=== PATIENT | male | born 1995 | race Asian ===

== ENCOUNTER 2023-12-25 08:04 | Emergency (ER) | payer SELFPAY ==
[2023-12-25 08:04] VITALS: BP 162/111; PULSE 96; RESP 16; TEMP 36.1; O2SAT 98
--- NOTE | 2023-12-25 08:23 | ED.EAR ---
HPI - Ear Problem General Chief complaint: Ear Stated complaint: right ear pain/ discharge Time Seen by Provider: 12/25/23 08:09 History of Present Illness HPI Narrative: Patient is a 28 year old male with history of psoriasis, not on treatment, here with right ear pain and swelling. He notes that at the beginning of December he began having a sensation of a plugged ear. He suspected he may have swimmer's ear and bought some decongesting drops off of [employer]. He has been using these however has felt persistent worsening. Pain and swelling seems to have worsened over the last 3 days. He notes some fullness anterior to the ear, as well as pain and swelling to the ear itself. He notes associated muffled hearing in this ear. He denies fever, chills. He did experience a traumatic TM rupture in this same here more than 10 years ago. His PCP is up in [place], he relocated to this area for work about 2 years ago and only goes back to [place] during holidays. Related Data Allergies Allergy/AdvReac Type Severity Reaction Status Date / Time bee venom protein (honey bee) Allergy Anaphylaxis Verified 12/25/23 08:32 [bees] Review of Systems Review of Systems: All systems reviewed & are unremarkable except as noted in HPI and below Exam Narrative: GENERAL: Well-appearing, well-nourished, and in no acute distress. HEAD: Normocephalic, atraumatic. EYES: PERRLA and EOMI. ENT: Nares clear. Mucous membranes moist. Left TM and external canal normal. Right external canal edematous with some yellow crusted discharge present. Tender exam, difficulty visualizing R TM due to canal edema. He has some tenderness over tragus. R preauricular lymphadenopathy. NECK: Supple. CHEST: Clear to auscultation. No respiratory distress. HEART: Regular rate and rhythm. Normal peripheral pulses. ABDOMEN: Soft, nontender, nondistended. EXTREMITIES: Normal range of motion. No edema. SKIN: Warm, dry, no rash. NEURO: No focal deficits. Alert and oriented x3. PSYCH: Normal mood and affect. Course Course Emergency Course: Chart review performed. Patient here with ear pain. Triage vitals normal. It appears he has not been here before. Patient seen evaluated, nontoxic appearing. He appears to have otitis externa with some preauricular lymphadenopathy present. Unable to visualize the right TM due to canal wall edema. Will place ear wick and prophylactically treat for both otitis externa and interna because TM is nonvisualized. Ear wick placed by myself without difficulty. Patient tolerated procedure well. The results of pertinent diagnostic studies and exam findings were discussed. The patient?s provisional diagnosis and plan of care were discussed with the patient and present family. The patient and/or present family expressed understanding of the diagnosis and plan. The nurse was instructed to provide written instructions and appropriate follow-up information. The patient understands their need and responsibility to obtain additional follow-up as instructed. The risks of medications administered and prescribed were discussed with the patient and family present. Discharge Plan Discharge Clinical Impression: Otitis externa Qualifiers: Otitis externa type: diffuse Chronicity: acute Laterality: right Qualified Code(s): H60.311 - Diffuse otitis externa, right ear Patient Disposition: Home, Self-Care Condition: Stable Instructions: Antibiotic Form, Swimmer's Ear (ED) Additional Instructions: You appear to have otitis externa which is an outer ear infection commonly called swimmer's ear. Take ibuprofen and tylenol as needed for pain. You may alternate these every 3 hours. Keep ear canal as dry as you can, this means no water sports for 7-10 days. Use antibiotic drops as prescribed. If the ear wick does not fall out on it's own, you should have it removed in about 3 days. Follow closely with PCP. Since I cannot see your ear drum, I am also going to start you on or
[2023-12-25 09:07] VITALS: BP 155/98; PULSE 90; RESP 16; TEMP 36.6; O2SAT 98
== END 2023-12-25 09:07 | disposition home or self-care (01) ==
PROVIDERS: Emergency Provider Student in an Organized Health Care Education/Training Program
DX: H60.311 Diffuse otitis externa, right ear (principal)
CPT/HCPCS: 99283